=== PATIENT | female | born 1990 | race American Indian/Alaskan Native ===

== ENCOUNTER 2017-06-14 13:54 | Emergency (ER) | payer BC, OTHER ==
[2017-06-14 14:10] VITALS: BP 135/95
[2017-06-14] MEDS ORDERED: Bupivacaine 0.5% 10 ML SDV INJECT ONE (14:32)
--- NOTE | 2017-06-14 14:38 | EDM.PDOC ---
ED HPI GENERAL MEDICAL PROBLEM - General Chief Complaint: Laceration Stated Complaint: R RING FINGER LAC Time Seen by Provider: 06/14/17 14:25 Source of Information: Reports: Patient History Limitations: Reports: No Limitations - History of Present Illness INITIAL COMMENTS - FREE TEXT/NARRATIVE: 27-year-old female presents to the ED with a work-related injury to her right ring finger. 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 This resulted in complete avulsion of the fingernail and it's hang onto the tip of her finger. She denies any other injuries. Not sure when her last tetanus toxoid was updated. She is right- hand dominant. Onset: Today Onset Date: 06/14/17 Onset Time: 13:45 Duration: Minutes: Location: Reports: Upper Extremity, Right (Right ring finger distal.) Quality: Reports: Ache, Throbbing Severity: Moderate Improves with: Reports: None Worsens with: Reports: Movement Context: Reports: Trauma (Crush type injury between 2 pieces of metal on machine where she is working with.). 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) (None.) Right 4-Ring finger Pain Score (Numeric/FACES): 9 - Related Data Allergies Allergy/AdvReac Type Severity Reaction Status Date / Time No Known Allergies Allergy Verified 06/14/17 14:04 Home Meds: Home Meds Cephalexin [Keflex] 500 mg PO TID #30 capsule 06/14/17 [Rx] oxyCODONE HCl/Acetaminophen [Percocet 5-325 mg Tablet] 1 - 2 each PO Q4H PRN # 16 tablet 06/14/17 [Rx] Past Medical History - Past Surgical History GI Surgical History: Reports: Appendectomy Social & Family History - Tobacco Use Smoking Status *Q: Never Smoker - Caffeine Use Caffeine Use: Reports: None - Recreational Drug Use Recreational Drug Use: No - Living Situation & Occupation Living situation: Reports: Single Occupation: Employed ED ROS GENERAL - Review of Systems Review Of Systems: See Below Constitutional: Reports: No Symptoms HEENT: Reports: No Symptoms Respiratory: Reports: No Symptoms Cardiovascular: Reports: No Symptoms Endocrine: Reports: No Symptoms GI/Abdominal: Reports: No Symptoms : Reports: No Symptoms Musculoskeletal: Reports: No Symptoms Skin: Reports: No Symptoms Neurological: Reports: No Symptoms Psychiatric: Reports: No Symptoms Hematologic/Lymphatic: Reports: No Symptoms Immunologic: Reports: No Symptoms ED EXAM, SKIN/RASH Exam: See Below Exam Limited By: No Limitations General Appearance: Alert, WD/WN, Anxious (Anion pain.), Moderate Distress Extremities: Other (Examination was limited to her right ring finger which is been injured distally. The nail has been completely avulsed but is stuck to the tip of the finger. Unsure if there is a laceration underneath this at the juncture of the nailbed and tip of the finger. No obvious fractures are evident. ) Neurological: Alert, Oriented, CN II-XII Intact, Normal Cognition, Normal Gait Psychiatric: Normal Affect, Normal Mood Skin: Warm, Dry, Intact, Normal Color, No Rash ED SKIN PROCEDURES - Laceration/Wound Repair Right Distal Finger Lac/Wound length In cm: 1.0 (Fingernail has been completely avulsed and I removed it. She has lacerated her nailbed from the nail matrix. It has been pulled away from the bone. I therefore elected to anchor the nailbed which is covering the distal phalanx with 2 angulated Vicryl 50 sutures to provide some degree of hemostasis and help bone coverage. No other lacerations were identified.) Appearance: Subcutaneous Distal NVT: Neuro & Vascular Intact Anesthetic Type: Digital Local Anesthesia - Bupivicaine (Marcaine): 0.5% Plain Local Anesthetic Volume: Other (6 mL) Skin Prep: Chlorhexidine (Hibiciens) Exploration/Debridement/Repair: Wound Explored Suture Type: Interrupted, Simple Suture Size: other (5-0) # of Sutures: 2 Repaired with: Vicryl Course - Vital Signs Last Recorded V/S: Last Vital Signs Temp 36.8 C 06/14/17 14:05 Pulse 80 06/14/17 14:05 Resp 18 06/14/17 14:05 BP 135/95 H 06/14/17 14:05 Pulse Ox 100 06/14/17 14:05 - Orders/Labs/Meds Meds: Medications Discontinued Medications Generic Name Dose Route Start Last Admin Trade Name Emilia PRN Reason Stop Dose Admin Bupivacaine HCl 10 ml 06/14/17 14:32 06/14/17 14:40 Sensorcaine-Mpf 0.5% INJECT 06/14/17 14:33 10 ml ONETIME ONE Administration - Radiology Interpretation Free Text/Narrative:: 27-year-old female presents to the ED with a work-related injury. She works at [employer] and states that her right index finger got caught essentially between 2 pieces of moving metal with crushtype injury to the distal aspect of the finger. Injury occurred within the last hour. She is unsure if her tetanus toxoid is up-to-date. Examination reveals complete avulsion of the fingernail and it is stuck to the end of the finger either by blood or tissue. Plan digital block with Marcaine 0.5% will be performed to relieve her pain. X-ray of the finger will then be obtained. Once it is clean will decide whether or not it needs repair. - Re-Assessments/Exams Free Text/Narrative Re-Assessment/Exam: 06/14/17 15:04 she has been able to establish that her last tetanus update was in 2010. X-ray of the finger reveals plantar fractures along the distal phalanx but for the most part the bone is intact. It will therefore not be treated like an open fracture. Digital block performed using Marcaine 0.5%. Wound is now soaking in Hibiclens and water solution. Will explore wound as it appears that there is a tip laceration that will need repair. 06/14/17 15:40: Finger was anesthetized quite well with digital block utilizing 0.5% Marcaine. After soaking in Hibiclens solution for 20 minutes was in able to explore the wound further. The nail had been completely avulsed and I just simply removed it. It was attached by a minimal bit of tissue distally. She has avulsed the nail bed from the nail matrix. There is active bleeding from the nailbed in this area. Decision made to anchor the nail bed to the nail matrix with 5-0 Vicryl sutures 2 to provide some degree of hemostasis. Cauterized the nailbed with silver nitrate otherwise to stop bleeding. No other lacerations were identified at the tip of the finger. Wound will be cleansed further topical antibiotic Telfa or Adaptic to the fingertip and then tube gauze dressing for the next 3 days. After this she daily cleanse area with soap and water showering will be okay. Then apply topical antibiotic such as bacitracin or Polysporin daily and cover with bandages to keep clean. She will return to work as she has alternative work duties available to her or she wouldn't have to use her right hand for the next 2-3 weeks until at least the nailbed heals up enough that she could tolerate a 12 and active use of this finger and hand. We'll place her on cephalexin 500 mg 3 times a day for 10 days to prevent any secondary infection. I did provide her with Percocet 5/3/25 milligram tabs one or 2 every 4-6 hours for pain relief 16 times. Advised that after the first 3 days pain will be much less and she should get by with Motrin 600mg Q6H prn, after this. Departure - Departure Time of Disposition: 15:46 Disposition: Home, Self-Care 01 Condition: Fair Clinical Impression: Avulsion of fingernail of right hand Fracture, finger, distal phalanx Qualifiers: Encounter type: initial encounter Finger: ring finger Fracture type: open Fracture alignment: displaced Laterality: right Qualified Code(s): S62.634B - Displaced fracture of distal phalanx of right ring finger, initial encounter for open fracture Nailbed laceration, finger Qualifiers: Encounter type: initial encounter Qualified Code(s): S61.319A - Laceration without foreign body of unspecified finger with damage to nail, initial encounter - Discharge Information Prescriptions: Cephalexin [Keflex] 500 mg PO TID #30 capsule oxyCODONE HCl/Acetaminophen [Percocet 5-325 mg Tablet] 1 - 2 each PO Q4H PRN # 16 tablet PRN Reason: pain relief. Instructions: Finger Fracture, [id number], Laceration Care, Adult Referrals: PCP,None [Primary Care Provider] - Forms: ED Department Discharge, ED Return to Work/School Form Additional Instructions: Evaluation in emergency him today in regards to work related injury to the distal aspect of your right ring finger. The fingernail itself was avulsed completely from the nailbed. There was a laceration of the nailbed which was sutured 2 to help stop the bleeding. X-rays reveal minimal sliver fractures along the distal phalanx which are of no consequence. No significant other lacerations are identified that needed repair. Initial dressing is to remain in place for the next 3 days. May then take the dressing off and start to cleanse the wound either by soaking in warm water or showering with glancing water across the wound. Ideally it should soak for 5 minutes in warm water with a drop or 2 of Dove or Ivory soap. Then the wound should have antibiotic ointment such as bacitracin or Polysporin applied to the nailbed wound should then have a dressing applied and then bandages up and over the tip of the finger and around the finger. No nail will grow back but it will take 6-8 months to regrow the nail completely. The nail will be deformed from injury to the nailbed. 2 sutures that were placed our Vicryl and will dissolve on their own. You may remove them when they are loose enough or they may just fall out on their own. Usually 10-14 days. Treatment is to keep her hand elevated above the level of your heart is much possible for the next 3 days. As well prevent swelling and relieve some of the throbbing pain. May use pain pill Percocet one or 2 every 4-6 hours for pain relief for the next 2-3 days. After this may use Motrin 600 mg every 6 hours for pain relief. Antibiotic is to be cephalexin 500 mg 3 times daily for 10 days to prevent secondary wound infection. Ideally your wound should be reviewed by her personal doctor in 10 days' time for Worker's Compensation documentation. You may return to work if there are alternative work duties available to you. He will not be able to use your right ring finger for at least 2 weeks and probably closer to 3 weeks as will be very tender to light touch. May return to your normal job once you're able to get along without any pain in that finger.
--- NOTE | 2017-06-14 15:42 | CR ---
Right fourth finger: Four views of the right fourth finger were obtained. Comparison: No previous study. Soft tissue injury is identified distally. Minimal fractures are seen within the distal phalanx. No additional bony abnormality is seen. Impression: 1. Minimal fractures within the distal phalanx. 2. Soft tissue injury. Diagnostic code #2
== END 2017-06-14 16:03 | disposition home or self-care (01) ==
LOC: JD.ED 13:54
DX: S62.634B Displaced fracture of distal phalanx of right ring finger, initial encounter for open fracture (principal); S61.314A Laceration without foreign body of right ring finger with damage to nail, initial encounter; W23.0XXA Caught, crushed, jammed, or pinched between moving objects, initial encounter
CPT/HCPCS: 11760; 73140-26-F8; 73140-F8; 99284-25

== ENCOUNTER 2019-07-16 19:03 | Inpatient (IN) | payer BC ==
[2019-07-16] MEDS ORDERED: Sodium Chloride 0.9% 10 ML Syringe FLUSH PRN (20:04)
[2019-07-16] MEDS ORDERED: Lidocaine 1% 50 ML MDV INJECT ONE (20:04)
[2019-07-16] MEDS ORDERED: Oxytocin/Lactated Ringers 10 UNIT/1,000 ML BAG IV SCH (20:15)
--- NOTE | 2019-07-16 21:13 | PCM.LDHP ---
L&D History of Present Illness - General Date of Service: 07/16/19 Admit Problem/Dx: Patient Status Order with Admit Dx/Problem 07/16/19 20:05 Patient Status [ADT] Routine Admission Diagnosis/Problem Admission Diagnosis/Problem 07/16/19 21:06 Yanique is a 29-year-old 1 para 0 female at 39-5/7 weeks gestational age with an LOUIE of 07/18/2019 who is admitted in labor and delivery in active labor with progressive cervical change. Source of Information: Patient History Limitations: Reports: No Limitations - History of Present Illness Introduction:: Yanique is a 29-year-old 1 para 0 female at 39-5/7 weeks gestational age with an LOUIE of 07/18/2019 who is admitted in labor and delivery in active labor with progressive cervical change.She reports having been in labor for most of the day today. She was seen earlier in clinic at which time her cervix was found to change from 2-3 cm and to 90% effacement. There was a bulging bag of bolanos and patient was having bloody show. Electronic monitoring showed contractions coming every 3-5 minutes, very mild in nature. Patient is not feeling them with the exception of some low back pain. Baby is very active and NST was reactive. 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 LOUEI is 07/18/2019 based upon her certain last menstrual was started on 10/11/2018. He is supported by 2 ultrasounds done on 12/24 and 03/06/2019. She had menarche at age 13. Cycles every 30-35 days. No control time of conception. Last menstrual period fairly certain. course. Patient's first visit was on 12/24/2018 at which time she is 10-4/7 weeks gestational age. She is seen on a very regular basis during the course of the and was a centering patient. Her weight gain was from 161-204 pounds for a 43 pound increase. Her vital signs were stable throughout the course and her fundal height growth was appropriate. Patient is group B strep negative. She declined genetic evaluation. Her Bradley depression screening score on 03/05/2019 was 2/30. It had been 10/30 on 02/12/2019. Patient plans to breast-feed. She had some uterine contractions which resolved spontaneously in the third trimester. Laboratory testing and shows blood to be O+ with a negative and by screen. Hemoglobin was 14.5 g/dL at first visit and platelets were 299, 000. Rubella titer shows immunity. RPR is nonreactive. Urine culture was negative at first visit. Hepatitis B surface antigen and HIV assays were both negative. Her chlamydia and gonorrhea assays were both negative. Second trimester labs showed hemoglobin 12.2 g/dL. Her platelets are 297,000 and her 1 hour GTT was normal at 95 mg/dL. RPR was nonreactive. Group B strep screen was negative. Allergies: None Medications: vitamins 1 daily Past medical history: Unremarkable. Past surgical history: Appendectomy during fifth grade. Family history: Mother is alive and has hypertension. Father is alive and well. 3 brothers and 2 sisters are alive and well. Maternal grandmother is alive with diabetes mellitus. Maternal grandfather is alive and is on dialysis. Paternal grandmother is secondary to old age. Paternal grandfather is alive and well. No anesthesia, bleeding, blood clotting or problems noted in the family. No cancer noted in the family either. Social history patient is . is Gianni. She works at [employer]. She has had some college education. They live in the [place] area. Review of systems: In general patient has no complaints. Patient is having contractions they are mild to moderate in nature. Baby has been active. Skin: Negative Lungs: No infectious symptoms or shortness of breath Cardiovascular: No chest pain or exercise intolerance Breasts: Changes associated with only. GI: Negative : Changes associated with . Musculoskeletal: Negative Neurological: Negative In general the patient is well-developed, well-nourished, pleasant female of stated age in no acute distress. She is noting contractions and good activity. Skin is warm dry without lesions. HEENT, neck and back within normal limits. Lungs are clear with good breath sounds in all lung saab. Cardiovascular exam shows regular and rhythm without murmurs. Breast exam is deferred having been done previously and found to be normal. Is not repeated at this time. Patient plans to breast-feed. Abdomen is gravid. Fundal height of last evaluation clinic earlier today 39.5 cm.. Genital exam per digital exam shows cervix to be 4+ centimeters, 90% effaced, mid position, -2 station, soft. This is a change from 3 cm earlier in the day. Extremities and neurological exam are grossly within normal limits. - Related Data Allergies/Adverse Reactions: Allergies Allergy/AdvReac Type Severity Reaction Status Date / Time No Known Allergies Allergy Verified 06/14/17 14:04 Home Medications: Home Meds Pnv No.95/Ferrous Fum/Folic AC [ Vitamin Tablet] 1 each PO DAILY [History] Past Medical History - Past Surgical History GI Surgical History: Reports: Appendectomy Social & Family History - Caffeine Use Caffeine Use: Reports: None - Living Situation & Occupation Living situation: Reports: Single Occupation: Employed H&P Review of Systems - Review of Systems: Review Of Systems: See Below L&D Exam - Exam Exam: See Below - Vital Signs Weight: 93.979 kg - Patient Data Lab Results Last 24 hrs: Laboratory Results - last 24 hr 07/16/19 Range/Units 20:18 WBC 13.57 H (3.98-10.04) K/mm3 RBC 4.26 (3.98-5.22) M/mm3 Hgb 13.2 (11.2-15.7) gm/dl Hct 38.4 (34.1-44.9) % MCV 90.1 (79.4-94.8) fl MCH 31.0 (25.6-32.2) pg MCHC 34.4 (32.2-35.5) g/dl RDW Std Deviation 46.4 H (36.4-46.3) fL Plt Count 203 D (182-369) K/mm3 MPV 9.7 (9.4-12.3) fl Neut % (Auto) 73.8 H (34.0-71.1) % Lymph % (Auto) 16.7 L (19.3-51.7) % [place] % (Auto) 7.9 (4.7-12.5) % Eos % (Auto) 0.3 L (0.7-5.8) Baso % (Auto) 0.1 (0.1-1.2) % Neut # (Auto) 10.02 H (1.56-6.13) K/mm3 Lymph # (Auto) 2.26 (1.18-3.74) K/mm3 [place] # (Auto) 1.07 H (0.24-0.36) K/mm3 Eos # (Auto) 0.04 (0.04-0.36) K/mm3 Baso # (Auto) 0.02 (0.01-0.08) K/mm3 Result Diagrams: 07/16/19 20:18 Problem List Initiated/Reviewed/Updated: Yes Orders Last 24hrs: Active Orders 24 hr Category Date Time Status Patient Status [ADT] Routine ADT 07/16/19 20:05 Active Activity as Tolerated [RC] PFP Care 07/16/19 20:05 Active Communication Order [RC] ASDIRECTED Care 07/16/19 20:05 Active Heart Tones [RC] ASDIRECTED Care 07/16/19 20:05 Active Non Stress Test [RC] PER UNIT ROUTINE Care 07/16/19 20:05 Active Notify Provider [RC] PFP Care 07/16/19 20:05 Active Notify Provider [RC] PRN Care 07/16/19 20:05 Active Peripheral IV Care [RC] . DIRECTED Care 07/16/19 20:05 Active Vital Signs [RC] PER UNIT ROUTINE Care 07/16/19 20:05 Active CBC WITH AUTO DIFF [HEME] Stat Lab 07/16/19 20:18 Results RAPID PLASMA REAGIN,RPR [CHEM] Routine Lab 07/16/19 20:18 Received TYPE AND SCREEN [BBK] Stat Lab 07/16/19 20:18 Received Lactated Ringers [Ringers, Lactated] 1,000 ml Med 07/16/19 20:15 Active IV ASDIRECTED Oxytocin/Lactated Ringers [Pitocin in LR 10 Units/1,000 Med 07/16/19 20:15 Active ML] 10 unit in 1,000 ml IV .CONTINUOUS Sodium Chloride 0.9% [Saline Flush] Med 07/16/19 20:04 Active 10 ml FLUSH ASDIRECTED PRN Electronic Heart Tones Ext w TOCO [WOMSER] Oth 07/16/19 20:05 Ordered Routine Electronic Heart Tones Internal [WOMSER] Per Unit Oth 07/16/19 20:05 Ordered Routine Peripheral IV Insertion Adult [OM.PC] Routine Oth 07/16/19 20:05 Ordered Resuscitation Status Routine Resus Stat 07/16/19 20:04 Ordered Medication Orders Lactated Ringer's (Ringers, Lactated) 1,000 mls @ 100 mls/hr IV ASDIRECTED LAUREEN Oxytocin/Lactated Ringer's (Pitocin In Lr 10 Units/1,000 Ml) 10 unit in 1,000 mls @ 500 mls/hr IV .CONTINUOUS LAUREEN Sodium Chloride (Saline Flush) 10 ml FLUSH ASDIRECTED PRN PRN Reason: Keep Vein Open Assessment/Plan Comment:: 1. 39-5/7 week intrauterine , active labor, cervical change. 2. Group B strep screen negative. 3. Patient is undecided about pain control at this time wants to do it naturally. She may be up for epidural later on. 4. Patient had her influenza vaccination on 03/29/2019. Her T dap was given on . Patient is rubella immune. 5. The patient plans to breast-feed. Plan: 1. Anticipate normal spontaneous vaginal delivery 2. Routine labor care 3. Pain control per patient desire. Have discussed epidural with her. Also discussed IV medication. She'll make a decision at the appropriate time. 4. Support breast-feeding decision 5. RPR and CBC upon admission.
[2019-07-16] MEDS: Lactated Ringers 1,000 ML IV SCH ×2 (23:06→23:37)
[2019-07-16] MEDS ORDERED: ePHEDrine 50 MG/ML SDV IVPUSH PRN (23:17)
[2019-07-16] MEDS ORDERED: fentaNYL 100 MCG/2 ML SDV EPIDUR PRN (23:17)
[2019-07-16] MEDS ORDERED: Bupivacaine/fentaNYL/NS 100 ML Bag EPIDUR PRN (23:17)
[2019-07-16] MEDS ORDERED: diphenhydrAMINE 50 MG/ML SDV IVPUSH PRN (23:17)
--- NOTE | 2019-07-16 23:45 | PCM.PREANE ---
Preanesthetic Assessment - Anesthesia/Transfusion/Family Hx Anesthesia History: Prior Anesthesia Without Reaction Family History of Anesthesia Reaction: No Transfusion History: No Prior Transfusion(s) - Review of Systems General: No Symptoms Pulmonary: No Symptoms Cardiovascular: No Symptoms Gastrointestinal: Abdominal Pain (labor) Neurological: No Symptoms - Physical Assessment Vital Signs: Last Vital Signs Temp 36.6 C 07/16/19 20:05 Pulse 76 07/16/19 20:05 Resp 16 07/16/19 20:05 BP 137/86 07/16/19 20:05 Pulse Ox 99 07/16/19 20:05 Height: 1.75 m Weight: 93.979 kg ASA Class: 2 Mental Status: Alert & Oriented x3 Airway Class: Mallampati = 1 Dentition: Reports: Normal Dentition Thyro-Mental Finger Breadths: 3 Mouth Opening Finger Breadths: 3 ROM/Head Extension: Full Lungs: Clear to Auscultation, Normal Respiratory Effort Cardiovascular: Regular Rate, Regular Rhythm - Lab Values: Laboratory Last Values WBC 13.57 K/mm3 (3.98-10.04) H 07/16/19 20:18 RBC 4.26 M/mm3 (3.98-5.22) 07/16/19 20:18 Hgb 13.2 gm/dl (11.2-15.7) 07/16/19 20:18 Hct 38.4 % (34.1-44.9) 07/16/19 20:18 MCV 90.1 fl (79.4-94.8) 07/16/19 20:18 MCH 31.0 pg (25.6-32.2) 07/16/19 20:18 MCHC 34.4 g/dl (32.2-35.5) 07/16/19 20:18 RDW Std Deviation 46.4 fL (36.4-46.3) H 07/16/19 20:18 Plt Count 203 K/mm3 (182-369) D 07/16/19 20:18 MPV 9.7 fl (9.4-12.3) 07/16/19 20:18 Neut % (Auto) 73.8 % (34.0-71.1) H 07/16/19 20:18 Lymph % (Auto) 16.7 % (19.3-51.7) L 07/16/19 20:18 Hale % (Auto) 7.9 % (4.7-12.5) 07/16/19 20:18 Eos % (Auto) 0.3 (0.7-5.8) L 07/16/19 20:18 Baso % (Auto) 0.1 % (0.1-1.2) 07/16/19 20:18 Neut # (Auto) 10.02 K/mm3 (1.56-6.13) H 07/16/19 20:18 Lymph # (Auto) 2.26 K/mm3 (1.18-3.74) 07/16/19 20:18 Hale # (Auto) 1.07 K/mm3 (0.24-0.36) H 07/16/19 20:18 Eos # (Auto) 0.04 K/mm3 (0.04-0.36) 07/16/19 20:18 Baso # (Auto) 0.02 K/mm3 (0.01-0.08) 07/16/19 20:18 Manual Slide Review Abnormal smear 07/16/19 20:18 RPR Non-reactive (NONREACTIVE) 07/16/19 20:18 Blood Type O POSITIVE 07/16/19 20:18 Gel Antibody Screen Negative 07/16/19 20:18 - Allergies Allergies/Adverse Reactions: Allergies Allergy/AdvReac Type Severity Reaction Status Date / Time No Known Allergies Allergy Verified 06/14/17 14:04 - Anesthesia Plan Pre-Op Medication Ordered: None - Acknowledgements Anesthesia Type Planned: Epidural Pt an Appropriate Candidate for the Planned Anesthesia: Yes Alternatives and Risks of Anesthesia Discussed w Pt/Guardian: Yes Pt/Guardian Understands and Agrees with Anesthesia Plan: Yes PreAnesthesia Questionnaire Gastrointestinal History: Reports: GERD 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: Dermatologic History: Reports: Other (See Below) Other Dermatologic History: hx of ringworm - Infectious Disease History Infectious Disease History: Reports: Chicken Pox - Past Surgical History GI Surgical History: Reports: Appendectomy - SUBSTANCE USE Smoking Status *Q: Never Smoker Tobacco Use Within Last Twelve Months: No Second Hand Smoke Exposure: No Recreational Drug Use History: No - HOME MEDS Home Medications: Home Meds Pnv No.95/Ferrous Fum/Folic AC [ Vitamin Tablet] 1 each PO DAILY [History] - CURRENT (IN HOUSE) MEDS Current Meds: Current Medications Diphenhydramine HCl (Benadryl) 25 mg IVPUSH Q6H PRN PRN Reason: Itching Ephedrine Sulfate (Ephedrine Sulfate) 5 mg IVPUSH ASDIRECTED PRN PRN Reason: HYPOTENTSION Fentanyl (Sublimaze) 100 mcg EPIDUR Q3H PRN PRN Reason: Pain Last Admin: 07/16/19 23:39 Dose: 100 mcg Fentanyl/Bupivacaine HCl (Fentanyl/Bupivacaine/Ns 2 Mcg-0.125% 100 Ml) 0 ml EPIDUR CONTINUOUS PRN PRN Reason: Pain Last Admin: 07/16/19 23:39 Dose: 100 ml Lactated Ringer's (Ringers, Lactated) 1,000 mls @ 100 mls/hr IV ASDIRECTED LAUREEN Last Admin: 07/16/19 23:37 Dose: 100 mls/hr Oxytocin/Lactated Ringer's (Pitocin In Lr 10 Units/1,000 Ml) 10 unit in 1,000 mls @ 500 mls/hr IV .CONTINUOUS LAUREEN Sodium Chloride (Saline Flush) 10 ml FLUSH ASDIRECTED PRN PRN Reason: Keep Vein Open Discontinued Medications Lidocaine HCl (Xylocaine 1%) 50 ml INJECT ONETIME ONE Stop: 07/16/19 20:05
[2019-07-17] MEDS: Lactated Ringers 1,000 ML IV SCH ×2 (00:38→04:21)
[2019-07-17] MEDS ORDERED: Oxytocin/Lactated Ringers 10 UNIT/1,000 ML BAG IV SCH (05:00)
--- NOTE | 2019-07-17 08:25 | PCM.SN ---
- Free Text/Narrative Note: Delivery note: Yanique is a 29-year-old 1 para 0 female at 39-5/7 weeks gestational age with an LOUIE of 07/18/2019 who is admitted in labor and delivery in active labor with progressive cervical change.The patient progressed steadily through labor. She underwent dural for labor analgesia. She became completely dilated by approximately 3:30 hours on 07/17/2019. She pushed for approximately 2-1/2 hours and at 0603 hrs. on 07/17/2019 she delivered a viable, avalos, male infant with Apgars of 8 and 9, weight of 8 lbs. 10 oz. (3900 g), a length of 21.5 inches in a direct occiput anterior position. The umbilical cord was noted to be very short. The umbilical cord was allowed to pulsate times approximately 2 minutes then was clamped 2 and cut by the baby's father set. Pitocin was creased 500 mL/h to facilitate increase in uterine tone and decreased likelihood of bleeding. Cord blood was obtained. Baby was placed on mom's abdomen, dried and stimulated. Nose and mouth were bulb suctioned. A small right vaginal to labia minora laceration was repaired with 3-0 Monocryl in routine fashion. Epidural analgesia was used for anesthesia Richard repair the laceration. Patient tolerated this well. The placenta delivered in a Luciano presentation, appeared intact and complete and was discarded per patient desire. Estimated blood loss was approximately 300 mL. There were 3 vessels in the umbilical cord. Patient plans to breast-feed. Condition: Good
[2019-07-17] MEDS ORDERED: Acetaminophen 325 MG Tab PO PRN (09:11)
[2019-07-17] MEDS ORDERED: Witch Hazel Medicated Pads 40/Jar TOP PRN (09:11)
[2019-07-17] MEDS ORDERED: Benzocaine/Menthol 20%-0.5% Spray 56 GM Canister TOP PRN (09:11)
[2019-07-17] MEDS ORDERED: Docusate Sodium 100 MG Cap PO PRN (09:11)
[2019-07-17] MEDS: Prenatal Multivitamin with Calcium/Folic Acid/Iron Tab PO SCH (09:57)
[2019-07-17] MEDS: Ibuprofen 600 MG Tab PO PRN ×2 (10:00→18:10)
[2019-07-17] MEDS ORDERED: Bupivacaine 0.25% 10 ML SDV ONE (23:55)
--- NOTE | 2019-07-18 06:14 | PCM.SN ---
- Free Text/Narrative Note: note: Patient is day #1 Patient is doing well in the period. Minimal lochia, voiding well, ambulated without problems. Nursing without concerns. Patient is afebrile, vital signs are stable Abdomen is flat, soft, uterus is below the umbilicus and is firm and nontender. Legs are nontender. Assessment: recovery going well. Plan: Routine care. Patient be discharged home within the next 24-48 hours.
[2019-07-18] MEDS: Prenatal Multivitamin with Calcium/Folic Acid/Iron Tab PO SCH (08:24)
[2019-07-18] MEDS: Ibuprofen 600 MG Tab PO PRN (08:25)
[2019-07-19 05:31] VITALS: PULSE 77
--- NOTE | 2019-07-19 07:01 | PCM.DCSUM1 ---
Discharge Summary - Hospital Course Free Text/Narrative:: Yanique is a 29-year-old 1 para 0 female at 39-5/7 weeks gestational age with an LOUIE of 07/18/2019 who is admitted in labor and delivery in active labor with progressive cervical change.The patient progressed steadily through labor. She underwent dural for labor analgesia. She became completely dilated by approximately 3:30 hours on 07/17/2019. She pushed for approximately 2-1/2 hours and at 0603 hrs. on 07/17/2019 she delivered a viable, avalos, male with Apgars of 8 and 9, weight of 8 lbs. 10 oz. (3900 g), a length of 21.5 inches in a direct occiput anterior position. The umbilical cord was noted to be very short. The umbilical cord was allowed to pulsate times approximately 2 minutes then was clamped 2 and cut by the baby's father set. Pitocin was creased 500 mL/h to facilitate increase in uterine tone and decreased likelihood of bleeding. Cord blood was obtained. Baby was placed on mom's abdomen, dried and stimulated. Nose and mouth were bulb suctioned. A small right vaginal to labia minora laceration was repaired with 3-0 Monocryl in routine fashion. Epidural analgesia was used for anesthesia for the repair of the laceration. Patient tolerated this well. The placenta delivered in a Luciano presentation, appeared intact and complete and was discarded per patient desire. Estimated blood loss was approximately 300 mL. There were 3 vessels in the umbilical cord. patient is doing well. She is nursing without problems, has minimal lochia, was voiding well and ambulating without concerns. She is desiring discharge home today. Condition: Good. Diagnosis: Stroke: No - Discharge Data Discharge Date: 07/19/19 Discharge Disposition: Home, Self-Care 01 Condition: Good - Referral to Home Health Primary Care Physician: Jose Lopez MD - Patient Instructions Diet: Regular Diet as Tolerated (Nursing diet with increase calories and calcium as recommended.) Activity: As Tolerated (No intercourse or tampons until bleeding resolves) Driving: May Drive Today Showering/Bathing: May Shower (May take a bath) Notify Provider of: Fever, Increased Pain, Swelling and Redness, Nausea and/or Vomiting - Discharge Plan Home Medications: Home Meds Pnv No.95/Ferrous Fum/Folic AC [ Vitamin Tablet] 1 each PO DAILY [History] Acetaminophen [Tylenol] 650 mg PO Q4H PRN tablet 07/19/19 [Rx] Ibuprofen [Motrin] 600 mg PO Q4H PRN tablet 07/19/19 [Rx] Referrals: Jose Lopez MD [Primary Care Provider] - (Return to clinicDr. Lopez or Nusrat ervin, nurse practitioner2 weeks.) - Discharge Summary/Plan Comment DC Time >30 min.: No Discharge Summary/Plan Comment: Discharge instructions: 1. Discharge home 2. Diet, activity and follow-up discussed with patient. Recommend nursing diet with increased calories and calcium. 3. Precautions given concern increased pain, bleeding, temperature, signs/ symptoms of DVT/PE. 4. Medications per home medication was printed, discussed with and given to the patient. 5. Return to clinic-Dr. Lopez or Nusrat ervin nurse practitioner -[facility] in 2 weeks. Diagnosis: Term -delivered Condition: Good - Patient Data Vitals - Most Recent: Last Vital Signs Temp 36.8 C 07/19/19 05:02 Pulse 77 07/19/19 05:02 Resp 16 07/19/19 05:02 BP 115/55 L 07/19/19 05:02 Pulse Ox 95 07/19/19 05:02 Weight - Most Recent: 93.979 kg I&O - Last 24 hours: Intake & Output 07/18/19 07/18/19 07/19/19 14:59 22:59 06:59 Intake Total 135 120 Balance 135 120 Med Orders - Current: Current Medications Acetaminophen (Tylenol) 650 mg PO Q4H PRN PRN Reason: mild pain or fever Benzocaine/Menthol (Dermoplast Pain Relief [place]) 0 gm TOP ASDIRECTED PRN PRN Reason: Perineal Comfort Measure Last Admin: 07/17/19 11:54 Dose: 1 spray Docusate Sodium (Colace) 100 mg PO BID PRN PRN Reason: Constipation Last Admin: 07/18/19 08:24 Dose: 100 mg Ibuprofen (Motrin) 600 mg PO Q4H PRN PRN Reason: Mild pain or fever Last Admin: 07/18/19 08:25 Dose: 600 mg Prenat Multivit/Cosmetics Counter Manager/Iron/Folic Ac ( Plus Iron) 1 each PO DAILY LAUREEN Last Admin: 07/18/19 08:24 Dose: 1 each Pallavi Dubois (Tucks) 1 pad TOP ASDIRECTED PRN PRN Reason: Perineal Comfort Measure Last Admin: 07/17/19 11:54 Dose: 1 pad Discontinued Medications Bupivacaine HCl (Sensorcaine-Mpf 0.25%) 10 ml .ROUTE .STK-MED ONE Stop: 07/17/19 23:56 Diphenhydramine HCl (Benadryl) 25 mg IVPUSH Q6H PRN PRN Reason: Itching Ephedrine Sulfate (Ephedrine Sulfate) 5 mg IVPUSH ASDIRECTED PRN PRN Reason: HYPOTENTSION Fentanyl (Sublimaze) 100 mcg EPIDUR Q3H PRN PRN Reason: Pain Last Admin: 07/16/19 23:39 Dose: 100 mcg Fentanyl/Bupivacaine HCl (Fentanyl/Bupivacaine/Ns 2 Mcg-0.125% 100 Ml) 0 ml EPIDUR CONTINUOUS PRN PRN Reason: Pain Last Admin: 07/16/19 23:39 Dose: 100 ml Lactated Ringer's (Ringers, Lactated) 1,000 mls @ 100 mls/hr IV ASDIRECTED LAUREEN Last Admin: 07/17/19 04:21 Dose: 100 mls/hr Oxytocin/Lactated Ringer's (Pitocin In Lr 10 Units/1,000 Ml) 10 unit in 1,000 mls @ 500 mls/hr IV .CONTINUOUS LAUREEN Last Admin: 07/17/19 00:39 Dose: 500 mls/hr Oxytocin/Lactated Ringer's (Pitocin In Lr 10 Units/1,000 Ml) 10 unit in 1,000 mls @ 12 mls/hr IV TITRATE LAUREEN; Protocol Last Titration: 07/17/19 07:02 Dose: 250 mls/hr Lidocaine HCl (Xylocaine 1%) 50 ml INJECT ONETIME ONE Stop: 07/16/19 20:05 Last Admin: 07/17/19 09:58 Dose: Not Given Sodium Chloride (Saline Flush) 10 ml FLUSH ASDIRECTED PRN PRN Reason: Keep Vein Open
[2019-07-19 09:17] VITALS: BP 117/79
[2019-07-19] MEDS: Ibuprofen 600 MG Tab PO PRN (10:58)
[2019-07-19] MEDS: Prenatal Multivitamin with Calcium/Folic Acid/Iron Tab PO SCH (10:58)
== END 2019-07-19 12:35 | disposition home or self-care (01) | DRG 560 ==
LOC: JD.OBCHECK 19:03 → JD.OB 19:08 → JD.OBCHECK 20:05 → JD.OB 20:19 → OBSVTOIN 07-17 06:03 → JD.OB 07-17 06:04
PROVIDERS: ADMIT Obstetrics & Gynecology; ATTEND Obstetrics & Gynecology
PROC: 10E0XZZ Delivery of Products of Conception, External Approach (ICD-10-PCS; principal; 2019-07-17)
PROC: 0HQ9XZZ Repair Perineum Skin, External Approach (ICD-10-PCS; 2019-07-17)
PROC: 3E0R3BZ Introduction of Anesthetic Agent into Spinal Canal, Percutaneous Approach (ICD-10-PCS; 2019-07-17)
DX: O70.0 First degree perineal laceration during delivery (principal); Z3A.39 39 weeks gestation of pregnancy; Z37.0 Single live birth
CPT/HCPCS: 01967; 36415; 51702; 59025; 59409; 85025; 86592; 86850; 86900; 86901; A9270-GY; J2590; J3010; J3490; J7120

== ENCOUNTER 2024-01-16 22:49 | Inpatient (IN) | payer BC ==
[~2024-01-16 22:49] MED LIST: Bupivacaine 0.25% 10 ML SDV ONE
[2024-01-16] MEDS ORDERED: Acetaminophen 325 MG Tab PO PRN (23:24)
[2024-01-16] MEDS ORDERED: Lidocaine 1% 50 ML MDV INJECT PRN (23:24)
[2024-01-16] MEDS ORDERED: Ondansetron 4 MG/2 ML SDV IVPUSH PRN (23:24)
[2024-01-16] MEDS ORDERED: Oxytocin/0.9 % Sodium Chloride 30 UNIT/500 ML BAG IV SCH (23:30)
[2024-01-16] MEDS: Lactated Ringers 1,000 ML IV SCH (23:30)
[2024-01-16 23:38] LABS: BASOPHILS PERCENT AUTO 0.4 % (0.0-1.0); EOSINOPHILS ABSOLUTE AUTO 0.1 K/mm3 (0.0-0.4); EOSINOPHILS PERCENT AUTO 0.5 % (0.0-6.0); HEMATOCRIT 38.3 % (37.0-47.0); HEMOGLOBIN 13.3 gm/dl (12.0-16.0); IMMATURE GRAN ABSOLUTE AUTO 0.15 K/mm3 (0.00-0.05); IMMATURE GRAN PERCENT AUTO 1.4 % (0.0-0.4); LYMPHOCYTES ABSOLUTE AUTO 2.8 K/mm3 (1.0-4.8); LYMPHOCYTES PERCENT AUTO 26.2 % (24.0-44.0); MEAN CORPUSCULAR HGB CONC 34.7 g/dl (32.0-36.0); MEAN CORPUSCULAR VOLUME 89.3 fl (83.0-99.0); MEAN PLATELET VOLUME 10.8 fl (9.4-12.3); MONOCYTES ABSOLUTE AUTO 0.7 K/mm3 (0.0-0.8); MONOCYTES PERCENT AUTO 6.9 % (0.0-8.0); NEUTROPHILS PERCENT AUTO 64.6 % (41.0-71.0); NRBC ABSOLUTE 0.02 (0.00-0.02); NRBC PERCENT 0.2 % (0.0-0.2); PLATELET COUNT,PLT 149 K/mm3 (150-400); RED BLOOD CELL COUNT 4.29 M/mm3 (4.10-5.30); WHITE BLOOD CELL COUNT,WBC 10.79 K/mm3 (3.9-11.3)
[2024-01-16] MEDS ORDERED: ePHEDrine 50 MG/ML SDV IVPUSH PRN (23:50)
[2024-01-16] MEDS ORDERED: Bupivacaine/fentaNYL/NS 100 ML Bag EPIDUR PRN (23:50)
[2024-01-16] MEDS ORDERED: diphenhydrAMINE 50 MG/ML SDV IVPUSH PRN (23:50)
[2024-01-16] MEDS ORDERED: fentaNYL 100 MCG/2 ML SDV EPIDUR PRN (23:50)
[2024-01-17 00:01] LABS: ALANINE AMINOTRANSFERASE,ALT 14 U/L (14-59); ASPARTATE AMNIOTRANSFERASE,AST 27 U/L (15-37); BLOOD UREA NITROGEN,BUN 14 mg/dL (7-18); CREATININE 0.8 mg/dL (0.55-1.02); ESTIMATED GFR 101 mL/min (>60); LACTATE DEHYDROGENASE,LDH 211 U/L (81-234); URIC ACID 6.5 mg/dL (2.6-6.0)
[2024-01-17] MEDS: Oxytocin/0.9 % Sodium Chloride 30 UNIT/500 ML BAG IV SCH (01:30)
[2024-01-17 05:31] LABS: CREATININE,URINE RAND 37.8 mg/dL (30.0-125.0); PROTEIN CREATININE RATIO,URINE 4148.1 mg/g (0-149); PROTEIN,URINE RANDOM 156.8 mg/dL (0.0-11.8)
[2024-01-17] MEDS ORDERED: Magnesium Hydroxide 400 MG/5 ML Susp 30 ML Cup PO PRN (05:49)
[2024-01-17] MEDS ORDERED: Docusate Sodium 100 MG Cap PO PRN (05:49)
[2024-01-17] MEDS ORDERED: Hydrocortisone Acetate 25 MG Supp RECTAL PRN (05:49)
[2024-01-17] MEDS ORDERED: Oxytocin/Lactated Ringers 30 UNIT/500 ML BAG IV SCH (05:49)
[2024-01-17] MEDS ORDERED: Benzocaine/Menthol 20%-0.5% Spray 78 GM Cannister TOP PRN (05:49)
[2024-01-17] MEDS ORDERED: Witch Hazel Medicated Pads 40/Jar TOP PRN (05:49)
[2024-01-17] MEDS: Ibuprofen 600 MG Tab PO SCH ×2 (06:14→12:54)
[2024-01-17] MEDS ORDERED: Oxytocin/0.9 % Sodium Chloride 30 UNIT/500 ML BAG IV SCH (09:45)
[2024-01-17] MEDS: Prenatal Multivitamin with Calcium/Folic Acid/Iron Tab PO SCH (12:55)
[2024-01-17] MEDS: Acetaminophen 325 MG Tab PO PRN (16:49)
[2024-01-18 10:06] VITALS: BP 139/91; PULSE 71
== END 2024-01-18 13:15 | disposition home or self-care (01) | DRG 560 ==
LOC: JD.OBCHECK 22:49 → JD.OB 22:57 → JD.OBCHECK 23:23 → JD.OB 23:24 → OBSVTOIN 01-17 01:16 → JD.OB 01-17 01:17
PROVIDERS: ADMIT Obstetrics & Gynecology; ATTEND Obstetrics & Gynecology
PROC: 10E0XZZ Delivery of Products of Conception, External Approach (ICD-10-PCS; principal; 2024-01-17)
PROC: 3E0R3BZ Introduction of Anesthetic Agent into Spinal Canal, Percutaneous Approach (ICD-10-PCS; 2024-01-17)
PROC: 00HU33Z Insertion of Infusion Device into Spinal Canal, Percutaneous Approach (ICD-10-PCS; 2024-01-17)
DX: O42.02 Full-term premature rupture of membranes, onset of labor within 24 hours of rupture (principal); O13.4 Gestational [pregnancy-induced] hypertension without significant proteinuria, complicating childbirth; Z3A.38 38 weeks gestation of pregnancy; Z37.0 Single live birth; O69.81X0 Labor and delivery complicated by cord around neck, without compression, not applicable or unspecified; O14.04 Mild to moderate pre-eclampsia, complicating childbirth
CPT/HCPCS: 01968; 36415; 59025; 59409; 82565; 82570; 83615; 84156; 84450; 84460; 84520; 84550; 85025; 86592; 86850; 86900; 86901; A9270-GY; J0665; J7120; J7999